=== PATIENT | female | born 1945 | race Caucasian/White ===

== ENCOUNTER 2018-06-16 05:27 | Emergency (ER) | payer MEDICARE, BC ==
[~2018-06-16] VITALS: Ht 170.2 cm; Wt 90.7 kg
[~2018-06-16 05:27] MED LIST: ALEVE220 M1 PO; BACTRIM DS TAB1 EACH PO; ESTROVEN ENER400 MCG PO; KEFLEX500 MG PO; MOTRIN IB200 MG PO; NORCO 5-325 TA1 EACH PO; OMEPRAZOLE20 MG PO; PERCOCET 7.5-31 EACH PO; VITAMIN D250000 UNIT PO
--- OUTSIDE RECORDS SUMMARY | 2018-06-16 05:32 | XMS ---
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 Андрей has no Care Guidelines for this patient. Arielle VISIT COUNT (12 MO.) 1 [facility] T[facility] NOTE: Visits indicate total known visits. ED/C VISIT TRACKING (12 MO.) [facility] COMPLAINT: - L [facility] DIAGNOSES: - abd pain - Post-op Problem - Other injury of unspecified body region, initial encounter 06/05/2018 08:17 [facility] TYPE: Urgent Care DIAGNOSES: - Contusion of abdominal wall, initial encounter - Hernia - Incisional hernia without obstruction or gangrene INPATIENT VISIT TRACKING (12 MO.) No inpatient visits to display in this time frame [email or web address]
[2018-06-16] MEDS ORDERED: GABAPENTIN100 MG PO (05:45)
[2018-06-16] MEDS ORDERED: MELOXICAM7.5 MG PO (05:45)
[2018-06-16] MEDS ORDERED: CARBIDOPA-LEVO1 EAC1 PO (05:46)
[2018-06-16] MEDS ORDERED: MAGNESIUM250 M1 PO (06:40)
[2018-06-16] MEDS ORDERED: NORCO 5-325 TA1 EACH PO (07:15)
== END 2018-06-16 07:25 | disposition home or self-care (01) ==
LOC: ED 05:27
DX: S32.029A Unspecified fracture of second lumbar vertebra, initial encounter for closed fracture (principal); S52.502A Unspecified fracture of the lower end of left radius, initial encounter for closed fracture; W18.30XA Fall on same level, unspecified, initial encounter; K21.9 Gastro-esophageal reflux disease without esophagitis; Z88.8 Allergy status to other drugs, medicaments and biological substances; Z79.899 Other long term (current) drug therapy
CPT/HCPCS: 72100; 73110; 99283-25

== ENCOUNTER 2022-04-11 13:03 | Emergency (ER) | payer MEDICARE, BC ==
[~2022-04-11] VITALS: Ht 170.2 cm; Wt 90.7 kg
[~2022-04-11 13:03] MED LIST changes: +CARBIDOPA-LEVO1 EAC1 PO; +GABAPENTIN100 MG PO; +MAGNESIUM250 M1 PO; +MELOXICAM7.5 MG PO
[2022-04-11] MEDS ORDERED: LISINOPRIL20 MG PO (13:24)
[2022-04-11] MEDS ORDERED: HYDROCODON-ACE1 EA10 PO (14:15)
[2022-04-11] MEDS ORDERED: FAMCICLOVIR500 MG PO (14:15)
--- NOTE | 2022-04-12 06:54 | EKG ---
[facility] [address] [place], [place] [address] Signed Normal sinus rhythm Nonspecific T wave abnormality Abnormal ECG No previous ECGs available Confirmed by ANNETTE MILLER MD ([id number]) on 04/12/2022 6:53:46 AM Electronically Signed By: ANNETTE MILLER MD 04/12/22 0654 PATIENT NAME: SAHARA PALACIOS Electrocardiogram DATE OF : 47 PHYSICIAN: ANNETTE MILLER MD REPORT #: [id number] REPORT IS CONFIDENTIAL AND NOT TO BE RELEASED WITHOUT AUTHORIZATION
== END 2022-04-11 14:32 | disposition home or self-care (01) ==
LOC: ED 13:03
DX: B02.9 Zoster without complications (principal); K21.9 Gastro-esophageal reflux disease without esophagitis; R94.31 Abnormal electrocardiogram [ECG] [EKG]; Z88.1 Allergy status to other antibiotic agents; Z79.899 Other long term (current) drug therapy; Z79.1 Long term (current) use of non-steroidal anti-inflammatories (NSAID)
CPT/HCPCS: 93005; 93010; 99284-25; A9270

== ENCOUNTER 2023-11-27 10:13 | Emergency (ER) | payer MEDICARE, BC ==
[~2023-11-27] VITALS: Ht 170.2 cm; Wt 93.7 kg
[~2023-11-27 10:13] MED LIST changes: +FAMCICLOVIR500 MG PO; +HYDROCODON-ACE1 EA10 PO; +LISINOPRIL20 MG PO; +ONDANSETRON ODT4 MG PO; +PRILOSEC OTC20 MG PO
[2023-11-27] MEDS ORDERED: BENZONATATE200 MG PO (11:00)
[2023-11-27] MEDS ORDERED: VENTOLIN HFA18 GM INH (11:00)
[2023-11-27 12:01] LABS: BASOPHILS 0.3 % (0-2); EOSINOPHILS 0.8 % (0-6); HEMATOCRIT 41.3 % (35.0-50.0); HEMOGLOBIN 13.6 g/dL (12.0-18.0); LYMPHOCYTES 28.3 % (24-44); MCH 27.9 (27-36); MCHC 33.1 g/dl (30-36); MCV 84.4 fl (81-99); NEUTROPHILS 64.6 % (39-80); PLATELET COUNT 229 K/uL (140-440); RBC 4.89 M/ul (4.3-5.7); RDW 14.1 (10.5-15.0)
[2023-11-27 12:18] LABS: ALBUMIN 3.7 g/dL (3.4-5.0); ALBUMIN/GLOBULIN RATIO 1.23 (1.1-2.4); ANION GAP 14.1 (7-21); BILIRUBIN, TOTAL 0.8 ng/dL (0.2-1.0); BUN/CREATININE RATIO 11.11 (6.0-28.6); CALCIUM 8.5 mg/dL (8.5-10.1); CREATININE, SERUM 0.81 mg/dL (0.55-1.02); POTASSIUM 4.1 mmol/L (3.5-5.1); PROTEIN, TOTAL 6.7 g/dL (6.4-8.2)
[2023-11-27] MEDS ORDERED: METHYLPREDNISOLO4 M1 PO (12:37)
[2023-11-27 12:41] VITALS: BP 156/99
--- NOTE | 2023-11-28 22:14 | EKG ---
[facility] [address] [facility] [place] [address] Signed Sinus rhythm with 1st degree AV block Otherwise normal ECG When compared with ECG of 11-APR-2022 13:07, Nonspecific T wave abnormality no longer evident in Anterior leads Confirmed by Holger James MD () on 11/28/2023 10:13:50 PM Electronically Signed By: HOLGER JAMES MD 11/28/23 2214 PATIENT NAME: PHILIPSAHARAENEDINA HODGE Electrocardiogram DATE OF : 47 PHYSICIAN: HOLGER JAMES MD REPORT #: [id number] REPORT IS CONFIDENTIAL AND NOT TO BE RELEASED WITHOUT AUTHORIZATION
== END 2023-11-27 12:40 | disposition home or self-care (01) ==
LOC: ED 10:13
PROVIDERS: Emergency Medicine
DX: T60.8X1A Toxic effect of other pesticides, accidental (unintentional), initial encounter (principal); J68.0 Bronchitis and pneumonitis due to chemicals, gases, fumes and vapors; R09.1 Pleurisy; Z88.1 Allergy status to other antibiotic agents; Z79.899 Other long term (current) drug therapy
CPT/HCPCS: 36415; 71045; 80053; 84484; 85025; 93005; 93010; 99284-25

== ENCOUNTER 2025-02-25 01:40 | Emergency (ER) | payer MEDICARE, BC ==
[~2025-02-25] VITALS: Ht 170.2 cm; Wt 89.8 kg
[~2025-02-25 01:40] MED LIST changes: +BENZONATATE200 MG PO; +METHYLPREDNISOLO4 M1 PO; +VENTOLIN HFA18 GM INH
[2025-02-25] MEDS ORDERED: KETOROLAC TROMETHAMINE 15 MG/ML VIAL IV ONE (02:30)
[2025-02-25] MEDS ORDERED: FAMOTIDINE 20 MG/ 2 ML VIAL IV ONE (02:30)
[2025-02-25 02:31] LABS: BASOPHILS 0.7 % (0.1-1.2); EOSINOPHILS 1.9 % (0.7-5.8); LYMPHOCYTES 33.1 % (19.3-51.7); MCH 28.6 PG (25.6-32.2); MCHC 33.2 g/dL (32.2-35.5); MCV 86.2 fL (79.4-94.8); MONOCYTES 9.7 % (4.7-12.5); NEUTROPHILS 54.3 % (34.0-71.1); RBC 4.86 M/uL (3.93-5.22)
[2025-02-25 02:48] LABS: ALT (SGPT) 29.0 U/L (14-59); AST (SGOT) 24.0 U/L (15-37); GLOMERULAR FILTRATION RATE,EST 77.0 mL/min (>60); PROTEIN, TOTAL 6.6 g/dL (6.4-8.2); UREA NITROGEN 13.0 mg/dL (7-18)
[2025-02-25] MEDS ORDERED: MORPHINE SULFATE 4 MG/ML VIAL IV ONE (03:15)
[2025-02-25] MEDS ORDERED: MIRALAX119 GM PO (03:57)
[2025-02-25] MEDS ORDERED: NAPROSYN500 MG PO (03:57)
[2025-02-25] MEDS ORDERED: LIDODERM1 EACH TOP (03:57)
[2025-02-25] MEDS ORDERED: HYDROCODONE BIT/ACETAMINOPHEN 5/325 MG 1 TAB HOME.PACK PO ONE (04:00)
[2025-02-25] MEDS ORDERED: LIDOCAINE HCL 4% 1 EACH PATCH TD ONE (04:00)
[2025-02-25 04:09] VITALS: BP 117/78
--- NOTE | 2025-02-26 14:16 | EKG ---
[facility] [address] [facility] [place] [address] Signed Sinus bradycardia Otherwise normal ECG When compared with ECG of 27-NOV-2023 11:39, No significant change was found Confirmed by David Murray DO ([id number]) on 02/26/2025 2:16:43 PM Electronically Signed By: DAVID MURRAY DO 02/26/25 1416 PATIENT NAME: SAHARA PALACIOS NAVEEN Electrocardiogram DATE OF : 47 PHYSICIAN: DAVID MURRAY DO REPORT #: [id number] REPORT IS CONFIDENTIAL AND NOT TO BE RELEASED WITHOUT AUTHORIZATION
[2025-02-26] MEDS ORDERED: MEXILETINE HCL200 MG PO (14:54)
[2025-02-26] MEDS ORDERED: CITRATE OF MAG296 ML PO (14:56)
== END 2025-02-25 04:14 | disposition home or self-care (01) ==
LOC: ED 01:40
PROVIDERS: Internal Medicine
DX: S29.011A Strain of muscle and tendon of front wall of thorax, initial encounter (principal); N28.1 Cyst of kidney, acquired; I10 Essential (primary) hypertension; X50.3XXA Overexertion from repetitive movements, initial encounter; Z88.8 Allergy status to other drugs, medicaments and biological substances; Z79.899 Other long term (current) drug therapy
CPT/HCPCS: 36415; 71045; 74176; 80053; 83690; 84484; 85025; 93005; 93010; 96374; 96375; 99284-25; A9270; J1885; J2270; J2405

== ENCOUNTER 2025-02-26 14:30 | Emergency (ER) | payer MEDICARE, BC ==
[~2025-02-26] VITALS: Ht 170.2 cm; Wt 91.6 kg
[~2025-02-26 14:30] MED LIST changes: +LIDODERM1 EACH TOP; +MIRALAX119 GM PO; +NAPROSYN500 MG PO
--- OUTSIDE RECORDS SUMMARY | 2025-02-26 14:37 | XMS ---
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 Arielle VISIT COUNT (12 MO.) 2 [facility] TOTAL 2 NOTE: Visits indicate total known visits. ED/UCC VISIT TRACKING (12 MO.) 02/26/2025 14:31 [facility] TYPE: Emergency COMPLAINT: - FLANK PAIN 02/25/2025 01:40 [facility] [place] TYPE: Emergency COMPLAINT: - PAIN UNDER RIBS INPATIENT VISIT TRACKING (12 MO.) No inpatient visits to display in this time frame [email or web address]
[2025-02-26] MEDS ORDERED: MEXILETINE HCL200 MG PO (14:54)
[2025-02-26] MEDS ORDERED: CITRATE OF MAG296 ML PO (14:56)
[2025-02-26] MEDS ORDERED: SODIUM CHLORIDE 0.9% 1,000 ML IV ONE (16:00)
[2025-02-26 16:20] LABS: BLOOD/HGB, URINE TRACE-I (Negative); KETONE, URINE NEGATIVE (Negative); LEUK ESTERASE, URINE NEGATIVE (negative); NITRITE, URINE NEGATIVE (negative)
[2025-02-26 16:26] LABS: EPITHELIAL CELLS, URINE SQUAMOUS 1+ /lpf (0-1+)
[2025-02-26 16:27] LABS: BACTERIA, URINE RARE /hpf (negative); CASTS, URINE NONE SEEN \\lpf; CRYSTALS, URINE NONE SEEN (0-1+); REFLEX CULTURE, URINE No (No)
[2025-02-26 16:37] LABS: BASOPHILS 0.5 % (0.1-1.2); EOSINOPHILS 1.3 % (0.7-5.8); LYMPHOCYTES 36.6 % (19.3-51.7); MCH 27.9 PG (25.6-32.2); MCHC 32.3 g/dL (32.2-35.5); MCV 86.5 fL (79.4-94.8); MONOCYTES 7.2 % (4.7-12.5); NEUTROPHILS 54.1 % (34.0-71.1); RBC 5.41 M/uL (3.93-5.22)
[2025-02-26 16:59] LABS: ALT (SGPT) 69.0 U/L (14-59); AST (SGOT) 41.0 U/L (15-37); GLOMERULAR FILTRATION RATE,EST 82.0 mL/min (>60); PROTEIN, TOTAL 7.2 g/dL (6.4-8.2); UREA NITROGEN 10.0 mg/dL (7-18)
[2025-02-26 17:16] VITALS: BP 142/87
== END 2025-02-26 17:17 | disposition home or self-care (01) ==
LOC: ED 14:30
PROVIDERS: Emergency Medicine
DX: K59.00 Constipation, unspecified (principal); R10.9 Unspecified abdominal pain; I10 Essential (primary) hypertension; Z88.8 Allergy status to other drugs, medicaments and biological substances; Z79.899 Other long term (current) drug therapy
CPT/HCPCS: 36415; 74176; 80053; 81001; 83690; 85025; 99284-25; J7030